=== PATIENT | female | born 1985 | race Caucasian/White ===

== ENCOUNTER 2020-12-22 13:59 | Emergency (ER) | payer SELFPAY ==
[~2020-12-22] VITALS: Ht 165.1 cm; Wt 79.2 kg
--- NOTE | 2020-12-22 14:11 | NUR ---
PT brought back from triage with chief complaint of Rt flank pain. Pt states "feels like previous kidney stone"
[2020-12-22] MEDS ORDERED: HYDROmorphone 2 MG/ML, 1ML IVPush PRN (14:30)
[2020-12-22] MEDS ORDERED: SODIUM CHLORIDE FLUSH 10ML SYR IVF ONE (14:30)
[2020-12-22] MEDS ORDERED: ONDANSETRON 2MG/ML, 2ML IVPush ONE ×2 (14:30→16:30)
[2020-12-22 14:41] LABS: BASOPHILS % (AUTO) 1 % (0-1); EOSINOPHILS % (AUTO) 1 % (1-7); LYMPHOCYTES % (AUTO) 16 % (22-44); MEAN CORPUSCULAR HEMOGLOBIN 31.1 pg (27.0-34.8); MEAN CORPUSCULAR HGB CONC 33.8 g/dL (32.4-35.8); MEAN PLATELET VOLUME 8.1 fL (7.4-10.4); MONOCYTES % (AUTO) 6 % (2-9); NEUTROPHILS % (AUTO) 76 % (42-75); PLATELET COUNT 289 x10^3/uL (130-400); RED BLOOD COUNT 4.81 x10^6/uL (3.82-5.3); RED CELL DISTRIBUTION WIDTH 13.9 % (9.6-15.2)
[2020-12-22 14:42] LABS: MD NO
[2020-12-22] MEDS ORDERED: ONDANSETRON 2MG/ML, 2ML ONE ×2 (14:43→16:24)
[2020-12-22] MEDS ORDERED: HYDROmorphone 1 MG/ML, 1ML INJ ONE ×2 (14:43→16:24)
[2020-12-22 14:51] LABS: ALBUMIN 4.4 g/dL (3.4-5.0); ANION GAP 9 mmol/L (5-15); CALCIUM 9.4 mg/dL (8.5-10.1); CHLORIDE 111 mmol/L (98-107); CREATININE 0.71 mg/dL (0.55-1.02)
[2020-12-22 14:55] LABS: MICROSCOPIC INDICATED
--- NOTE | 2020-12-22 15:17 | NUR ---
pt to ct
[2020-12-22 15:47] VITALS: BP 128/76
[2020-12-22] MEDS ORDERED: HYDROmorphone 1 MG/ML, 1ML INJ IV ONE (16:30)
--- NOTE | 2020-12-22 16:31 | NUR ---
PT RE-MEDICATED FOR PAIN AND NAUSEA
--- NOTE | 2020-12-22 16:47 | NUR ---
DISCHARGE INSTRUCTIONS REVIEWED WITH PT. NARCOTIC CONSENT SIGNED. ALL QUESTIONS ANSWERED AT THIS TIME
== END 2020-12-22 16:49 | disposition home or self-care (01) ==
LOC: ED 16:43
DX: N20.1 Calculus of ureter (principal); R10.9 Unspecified abdominal pain; R31.9 Hematuria, unspecified; M54.5 Low back pain
CPT/HCPCS: 36415; 74176; 80048; 81001; 82040; 85025; 87086; 96374; 96375; 96376; 99284; J1170; J2405